=== PATIENT | female | born 2000 | race African-American/Black ===

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

== ENCOUNTER 2020-09-29 14:15 | Emergency (ER) | payer OTHER ==
[2020-09-30 15:08] LABS: SARS-CoV-2 NAA Not Detected (Not Detected)
== END 2020-09-29 14:36 | disposition home or self-care (01) ==
LOC: JVIRT 14:15
DX: R05 Cough (principal); R09.81 Nasal congestion; Z20.822 Contact with and (suspected) exposure to COVID-19
CPT/HCPCS: C9803; Q3014-GT; U0003; U0005